=== PATIENT | female | born 1960 | race Caucasian/White ===

== ENCOUNTER 2017-07-16 10:26 | Emergency (ER) | payer OTHER ==
[~2017-07-16] VITALS: Ht 167.6 cm; Wt 78.0 kg
--- NOTE | ~2017-07-16 | EKG ---
[place] [address] [facility] [place] [address] ELECTROCARDIOGRAM REPORT Name: SHONA MANTILLA Room #: DEP Gui#: [id number] Admission: 07/16/17 Attend Phys: Discharge: 07/16/17 Date of : 64 Report #: [id number] THIS REPORT FOR: //name// [facility] ED Test Date: 2017-07-16 Test Time: 10:38:35 Pat Name: SHONA MANTILLA Department: Room: Gender: F Benefits Assistant: DONAVAN : 1960 Requested By: Marcin Singletary Order Number: [id number] MD: Patel Baez Measurements Intervals [place] Rate: 76 P: 80 ND: 125 QRS: 25 QRSD: 114 T: 52 QT: 382 QTc: 430 Interpretive Statements Sinus rhythm Normal tracing No previous ECG available for comparison Electronically Signed On 07-17-2017 14:30:33 [employer]TE[employer] by Patel Baez [email or web address] <ELECTRONICALLY SIGNED> By: Patel Baez MD, [facility] 07/17/17 1430 1038 1038 Patel Baez MD, FACC /EPI
[2017-07-16] MEDS ORDERED: LORAZEPAM 1 MG T1 M1 PO (10:31)
[2017-07-16] MEDS ORDERED: PROTONIX40 M1 PO (10:31)
[2017-07-16] MEDS ORDERED: MULTI VITAMIN1 EACH PO (10:32)
[2017-07-16] MEDS ORDERED: TRAZODONE HCL50 MG PO (10:32)
[2017-07-16] MEDS ORDERED: CELEXA20 MG PO (10:33)
[2017-07-16] MEDS ORDERED: SARAFEM10 MG PO (10:33)
[2017-07-16] MEDS ORDERED: SYMBICORT160 MCG/4. INH (10:34)
[2017-07-16] MEDS ORDERED: SPIRIVA RESPIMAT4 G1 INH (10:34)
[2017-07-16] MEDS ORDERED: MAGNESIUM250 M1 PO (10:35)
[2017-07-16] MEDS ORDERED: KLOR-CON 88 ME1 PO (10:35)
[2017-07-16] MEDS ORDERED: TUMS PO (10:35)
[2017-07-16 10:55] LABS: CALCIUM 9.7 mg/dL (8.5-10.1); CREATININE 1.1 mg/dL (0.6-1.0); POTASSIUM 4.2 mmol/L (3.5-5.1)
[2017-07-16 10:57] LABS: ABSOLUTE NEUTROPHILS 4.8 thou/uL (1.4-8.2); BASOPHILS 1.4 % (0.0-2.0); EOSINOPHILS 2.3 % (0.0-3.0); HEMATOCRIT 47.1 % (37.0-47.0); HEMOGLOBIN 15.9 gm/dL (12.0-15.0); LYMPHOCYTES 30.8 % (24.0-44.0); MCH 29.5 pg (26.0-34.0); MCHC 33.8 g/dL (28.0-37.0); MCV 87.3 fL (80.0-100.0); MONOCYTES 5.4 % (1.0-8.0); PLATELET COUNT 272 thou/uL (150-400); POLYS 60.1 % (36.0-66.0); RBC 5.39 mil/uL (4.20-5.00); RDW 13.3 % (10.5-14.5); WBC 7.9 thou/uL (4.0-11.0)
[2017-07-16 11:01] LABS: ALBUMIN 3.9 g/dL (3.4-5.0); TOTAL BILIRUBIN 0.3 mg/dL (<0.1-1.0); TOTAL PROTEIN 7.1 g/dL (6.4-8.2)
[2017-07-16] MEDS ORDERED: CARAFATE 1 GM TA1 G1 PO (12:20)
[2017-07-16] MEDS ORDERED: HYDROCODONE-AP1 EAC6 PO (12:20)
== END 2017-07-16 13:04 | disposition home or self-care (01) ==
LOC: ER 10:26
PROVIDERS: Physician Assistant
DX: K29.00 Acute gastritis without bleeding (principal); Z87.891 Personal history of nicotine dependence